=== PATIENT | male | born 1950 | race Caucasian/White ===

== ENCOUNTER 2017-10-17 06:03 | Inpatient (IN) ==
[2017-10-17] MEDS ORDERED: CeFAZolin Syr 2,000MG/20 ML 2,000 MG/20 ML SYRINGE IVPB ONE (06:28)
[2017-10-17] MEDS ORDERED: Albuterol 2.5 MG/3 ML NEBULIZER IH ONE (06:55)
[2017-10-17] MEDS ORDERED: Albuterol 2.5 MG/3 ML NEBULIZER ONE (06:56)
--- NOTE | 2017-10-17 07:04 | Anesthesia Evaluation PreOp ---
Date of Encounter: 10/17/17 Time of Encounter: 07:02 - Past History Planned Operation: Left CEA Cardiac History: MS, HTN, Hyperlipidemia, Cardiac Surgery (CABG x 2 in 08/07/2017 , last dose of plavix at 0400) Pulmonary History: Former smoker (quit 08/02/2017, smoked for 40 years) VEGETABLE [employer] History: Denies Any Significant HX Other Medical History: GERD Anesthesia History: No Prior Anesthetic Complications, Past Anesthesia Alcohol Use: none Drug use: none Medications and Allergies Atorvastatin Calcium [Lipitor] 20 mg PO DAILY #30 tablet 08/22/17 [Rx] Clopidogrel [Plavix] 75 mg PO DAILY 30 Days #30 tablet 08/22/17 [Rx] Metoprolol [Lopressor] 25 mg PO BID #60 tablet 08/22/17 [Rx] Omeprazole [PriLOSEC] 20 mg PO BIDAC #60 capsule. 08/22/17 [Rx] Aspirin [Lo-Dose Aspirin EC] 81 mg PO DAILY 10/06/17 [History] 3 Allergy/AdvReac Type Severity Reaction Status Date / Time No Known Allergies Allergy Verified 08/17/17 17:12 - Meds/Allergy Pre-op Review Medications Reviewed: Yes Allergies Reviewed: Yes Beta Blockers on Current Med List: Yes If Beta Blockers taken, Date/Time (Last Dose taken): 10/17/2017 at 0400 Anesthesia Results - Labs Laboratory Tests 09/25/17 09/25/17 09/25/17 12:34 12:34 12:34 WBC 8.7 Hgb 13.7 Hct 40.4 Plt Count 252 PT 11.8 INR 1.0 APTT 33.1 Sodium 140 Potassium 3.3 L BUN 9 Creatinine 1.10 - Imaging EKG: report reviewed (09/25/2017 SINUS RHYTHM LEFT ATRIAL ENLARGEMENT [-0.15mV P WAVE IN V1/V2] RIGHT BUNDLE BRANCH BLOCK [120+ ms QRS DURATION, UPRIGHT V1, 40+ ms S IN I/aVL/V4/V5/V6] POSSIBLE OLD INFERIOR MS) Anesthesia Exam O2 Sat Height 1.73 m Height 1.73 m Height 1.73 m Weight 64.864 kg Weight 64.864 kg Weight 64.864 kg O2 Sat by Pulse Oximetry 97 Vital Signs Temp Pulse Resp BP Pulse Ox 97.9 F 73 18 141/78 97 10/17/17 06:24 10/17/17 06:24 10/17/17 06:24 10/17/17 06:24 10/17/17 06:24 Height: 5'8'' Weight: 143 lbs NPO (# of Hours): 8 Pain Scale: 0 Pain Scale Used: Numeric (1 - 10) - HEENT Pupil (Motor): EOMI Mallampati: II Teeth: Edentulous Oral Opening: Greater than 3 - VEGETABLE [employer] LOC: Oriented VEGETABLE [employer] F[employer] Motor: Normal RUE, Normal LUE, Normal RLE, Normal LLE, Normal Face [employer] Sensory: Normal: RUE, LUE, RLE, LLE, Face - Cardiac Rhythm: Regular Murmur: None - Pulmonary Breath Sounds: bilateral Clear Respiratory Effort: Symmetrical Anesthesia Assess/Plan ASA Score: 3 Modified [place] Scale for Level of Consciousness: Cooperative, oriented, and tranquil Anesthetic Plan: General Monitoring Plan: Standard Monitors, A-Line Recovery Plan: PACU
[2017-10-17] MEDS ORDERED: LIDOCAINE 1% PF 2 ML AMPUL ONE (07:17)
[2017-10-17] MEDS ORDERED: Lidocaine 1% 20 ML MDV ONE (07:19)
[2017-10-17] MEDS ORDERED: Heparin 1,000 UNITS/500 mL 1,500 ML ONE (07:19)
[2017-10-17] MEDS: Ringers Solution, Lactated 1,000 ML IVC SCH ×2 (07:32→13:30)
--- NOTE | 2017-10-17 07:40 | History & Physical Report ---
Date of Encounter: 10/17/17 Time of Encounter: 07:30 24 Hour HP Update - Instructions Instructions: If the History and Physical is less than 30 days old and was completed prior to A.M. admission and or procedure and has NOT been updated on calendar day of procedure please complete this update prior to performing procedure. - Update Patient reports changes in Medical Condition: No Changes in examination, assessment, or condition: No Changes in Medication: No Preop tests/diagnostics Reviewed: Yes Surgery Remains Indicated: Yes Consent for Planned Operative Procedure(s) Verified: Yes - Pre-Operative Checklist Preoperative Checklist Indicated: Yes Prophylactic Antibiotic Ordered: Yes Home Medications Include Beta Capo: Yes Beta Capo Taken Today (Day of Surgery): Yes Beta Capo Taken Yesterday (Day Prior to Surgery): Yes Is VTE Prophylaxis Indicated?: Yes
[2017-10-17] MEDS ORDERED: ceFAZolin 1,000 MG, Sodium Chloride IRRigation 1,000 ML IR ONE (07:45)
[2017-10-17] MEDS ORDERED: *HR* Labetalol 100 MG/20 ML MDV ONE (08:05)
[2017-10-17] MEDS ORDERED: *HR* OxyCODONE Immed Rel 5 MG TABLET PO PRN (08:41)
[2017-10-17] MEDS ORDERED: *HR* HYDROmorphone 2 MG TABLET PO PRN (08:41)
[2017-10-17] MEDS ORDERED: *HR* Labetalol 100 MG/20 ML MDV IVP PRN (08:41)
[2017-10-17] MEDS ORDERED: *HR* Remifentanil 1 MG VIAL IVP ONE ×2 (10:56)
[2017-10-17] MEDS ORDERED: *HR* Heparin 5,000 UNIT/ML VIAL ONE (10:56)
[2017-10-17] MEDS ORDERED: *HR* Midazolam HCl 2 MG/2 ML VIAL ONE (10:56)
[2017-10-17] MEDS ORDERED: Lidocaine -MPF 2% 2 ML VIAL ONE (10:56)
[2017-10-17] MEDS ORDERED: *HR* FentaNYL (PF) 100 MCG/2 ML VIAL ONE (10:56)
[2017-10-17] MEDS ORDERED: *HR* Succinylcholine 200 MG/10 ML VIAL IVP ONE (10:56)
[2017-10-17] MEDS ORDERED: Dexamethasone 4 MG/ML VIAL ONE ×2 (10:56→13:20)
[2017-10-17] MEDS ORDERED: *HR* Phenylephrine 10 MG/ML VIAL ONE (10:56)
[2017-10-17] MEDS ORDERED: Lidocaine -MPF 4% 5 ML AMPUL ONE (10:56)
[2017-10-17] MEDS ORDERED: *HR* Propofol 200 MG/20 ML VIAL IVP ONE (10:56)
[2017-10-17] MEDS ORDERED: Heparin 1,000 UNITS/500 mL 0 ML ONE (10:56)
[2017-10-17] MEDS ORDERED: Ondansetron 4 MG/2 ML VIAL ONE (10:57)
[2017-10-17] MEDS ORDERED: Protamine Sulfate 50 MG/5 ML VIAL IVP ONE (11:07)
--- NOTE | 2017-10-17 12:16 | Operative Note ---
Date of procedure: 10/17/17 Pre-op diagnosis: left carotid stenosis Post-op diagnosis: same Procedure: left carotid endarterectomy with 8 Fr shunt and bovine patch angioplasty Complications: none Anesthesia: GETA Surgeon: Sean Gaspar Was there an medical laboratory assistant present: No Estimated blood loss (cc): 150 Specimen: none Condition: stable Disposition: PACU Procedure in Detail: History Mr. Javier Blanco is a 66-year-old white male who had had a coronary event requiring intervention and bypass in July of this year in [place]. He was receiving rehabilitation at [facility] where a carotid artery bruit was identified and an abnormal carotid artery duplex scan was obtained. This led to a carotid artery angiogram which showed a high grade lesion of the left internal carotid artery. In addition it demonstrated a high-grade lesion of the orifice of the right subclavian artery with very diminished flow in the right vertebral artery. The patient now comes to the operating room for the left carotid endarterectomy. Procedure After informed consent was obtained the patient was taken to the operating room. An arterial line was placed. General endotracheal anesthesia was established. The left neck was sterilely prepped and draped area a timeout protocol was observed. An oblique incision was then made on the left neck paralleling the anterior border of the sternocleidomastoid muscle. Dissection was carried down to the carotid sheath. The patient demonstrated multiple filmy layers around the contents of the carotid sheath leading to a prolonged dissection. In addition the patient had abnormal takeoff of the superior thyroid artery which needed to be divided in order to appropriately expose the carotid artery bifurcation. After appropriate control was obtained of the carotid vessels 5000 units of heparin were administered intravenously. Observing a three-minute delay the vessels were then clamped with the internal carotid artery clamped first. An 11 blade knife and Dodson scissors were used to open the vessel. An 8 Togol[place] shunt was then inserted atraumatically. Patency of the shunt was confirmed by the use of intraoperative Doppler. Examination of the plaque revealed a very dense and bulky plaque at the orifice of the internal carotid artery. There were no findings of intra-mural or intraluminal hemorrhage or thrombus. The endarterectomy was then begun at the distal aspect of the common carotid artery. Dissection was carried circumferentially proximally and distally. The orifice of the external carotid artery was endarterectomized. The endpoint on the internal carotid artery was smooth. No tacking sutures were necessary. The proximal plaque was also smooth and no tacking sutures were necessary here as well. The bed of the vessel was then inspected for any residual debris. A copious amount of heparinized saline was used to flush this area. A bovine pericardial patch angioplasty was then performed. This was sewn into position using 2 6-0 Prolene sutures. Leaving a small space open on the suture line the shunt was clamped and divided and removed. The final few sutures were then placed. After appropriate backbleeding and flushing the arteries were opened. The flow was first allowed to go into the external carotid artery and then finally into the internal carotid artery. The patient had significant oozing from the needle puncture sites in the surrounding soft tissue. A total of 2 10 mg doses of protamine were given in order to reverse the heparin effect to augment hemostasis. Multiple applications of topical hemostatic agents were used as well. This required a prolonged treatment time. Once hemostasis was achieved the wound was copiously irrigated with antibiotic containing solution. The wound was then closed in layers after half percent Marcaine superficial cervical block was performed. Dry sterile dressing was applied. No drains were placed. The patient was extubated in the operating room. He was found to be neurologically intact. He was then transported from the operating room to the recovery room in stable condition.
--- NOTE | 2017-10-17 12:51 | Anesthesia Evaluation Post Op ---
Date of Encounter: 10/17/17 Time of Encounter: 12:47 - Vital Signs Vital Signs: Vital Signs/O2 Sat, Most Current Temp Pulse Resp BP Pulse Ox 97.4 F L 83 16 99/45 98 10/17/17 12:18 10/17/17 12:38 10/17/17 12:38 10/17/17 12:38 10/17/17 12:38 - Lungs Lungs: Clear Ascult./Percussion - Airway Airway: Non-obstructed - Cardiovascular Regular Rate - Mental Status Mental Status: Alert & Oriented, Answers Appropriately - Pain Pain Scale: 2 Pain Scale used: Numeric (1 - 10) - Nausea Vomiting Nausea Vomiting: Not Present - Hydration Hydration: Ice chips, Has not voided - Discharge PostOp Status: Transfer Patient to floor
[2017-10-17] MEDS ORDERED: *HR* PHENYLEPHRINE 1,000 MCG/10 ML SYRINGE IVP ONE (12:58)
[2017-10-17] MEDS ORDERED: Dexamethasone 4 MG/ML VIAL IVP ONE (13:20)
--- NOTE | 2017-10-17 14:12 | Anesthesia Evaluation Post Op ---
Date of Encounter: 10/17/17 Time of Encounter: 14:10 - Vital Signs Vital Signs: Vital Signs/O2 Sat/Glucose, Most Recent Temp Pulse Resp BP Pulse Ox 97.2 F L 86 16 103/44 99 10/17/17 13:48 10/17/17 13:58 10/17/17 13:58 10/17/17 13:58 10/17/17 13:58 - Lungs Lungs: Clear Ascult./Percussion - Airway Airway: Non-obstructed - Cardiovascular Regular Rate - Mental Status Mental Status: Alert & Oriented, Answers Appropriately - Pain Pain Scale: 0 Pain Scale used: Numeric (1 - 10) - Nausea Vomiting Nausea Vomiting: Not Present - Hydration Hydration: Ice chips, Has not voided Notes: 10/17/17 14:11 ZENA x4. Neuro exam intact. VSS. Denies having any pain or N/V. Has fully recovered from anesthesia. - Discharge PostOp Status: Transfer Patient to floor
[2017-10-17] MEDS ORDERED: Ondansetron 4 MG/2 ML VIAL IVP PRN (14:17)
[2017-10-17] MEDS ORDERED: *HR* HYDROcodone/Acet 5/325 mg TABLET PO PRN (14:17)
[2017-10-17] MEDS ORDERED: Naloxone 0.4 MG/ML INJ IVP PRN (14:17)
[2017-10-17] MEDS ORDERED: Acetaminophen 325 MG TABLET PO PRN (14:17)
[2017-10-18 05:56] LABS: Hematocrit 25.7 % (37.5-50.1); Hemoglobin 8.5 g/dL (12.9-16.9); Immature Granulocytes % 0.4 % (0-4); Lymphocytes # 1.7 K/mcL (0.6-4.6); Lymphocytes % 15.5 %; Mean Corpuscular HGB Conc 33.1 g/dL (31.6-35.5); Mean Corpuscular Hemoglobin 29.8 pg (28.0-33.3); Mean Corpuscular Volume 90.2 fL (83.0-100.0); Mean Platelet Volume 11.4 fL (9.4-12.4); Monocytes # 0.8 K/mcL (0.0-1.3); Monocytes % 7.5 %; Neutrophils # 8.4 K/mcL (1.6-8.9); Platelet Count 228 K/mcL (140-400); Red Blood Count 2.85 M/mcL (4.19-5.50); Red Cell Distribution Width 13.5 % (11.5-14.5); Segmented Neutrophils % 76.6 %
[2017-10-18 06:26] LABS: BUN/Creatinine Ratio 13 (6-26); Blood Urea Nitrogen 11 mg/dL (8-23); Calcium 8.5 mg/dL (8.6-10.3); Carbon Dioxide 25 mEq/L (23-29); Chloride 110 mEq/L (98-107); Glucose 123 mg/dL (70-105); Osmolality,Calculated 293 (280-300); Potassium 3.5 mEq/L (3.5-5.1); Sodium 141 mEq/L (136-145); eGFR For Non-African Americans > 60 (> 60)
[2017-10-18] MEDS ORDERED: Aspirin Enteric Coated 81 MG Tablet PO SCH (09:00)
[2017-10-18 11:08] VITALS: BP 109/66
--- NOTE | 2017-10-18 12:48 | Discharge Summary ---
Orders not resulted at time of discharge: Pending orders 10/16/17 11:30 Red Blood Cells [BBK] Routine Date of Encounter: 10/18/17 Time of Encounter: 12:46 - Discharge Diagnosis (1) Carotid artery disease Priority: Primary Status: Acute Comments: The patient was found to have a carotid artery bruit. This led to duplex scan. The patient was then referred to vascular surgery. An antrum was obtained which showed high-grade left internal carotid artery stenosis of approximately 90% or greater. The patient was then scheduled for surgery for left carotid endarterectomy. Qualifiers: Carotid artery disease type: stenosis Laterality: bilateral Qualified Code(s): I65.23 - Occlusion and stenosis of bilateral carotid arteries (2) S/P CABG x 2 Priority: Secondary Status: Chronic Comments: Patient had done chest pain July which led to cardiology evaluation and workup. The patient had open heart bypass grafting at [facility]. (3) HTN (hypertension) Priority: Secondary Status: Chronic Comments: Patient has a history of chronic hypertension Qualifiers: Hypertension type: essential hypertension - Hospital Course Hospital course: Mr. Blanco is a 66 year old male Who was found to have an asymptomatic carotid bruit. On angiography had a high- grade left carotid artery stenosis. Patient was admitted for surgery for this lesion. He had an uneventful left carotid endarterectomy performed under general endotracheal anesthesia. There were no periprocedural complications are neurologic issues. Patient was doing well postoperatively. He was felt fit for discharge on postoperative day #1. Instructions were given with diet and medication and wound care issues addressed prior to discharge. - Time Spent with Patient Total time spent providing and/or coordinating discharge services: - Discharge Medications Home Medications: Atorvastatin Calcium [Lipitor] 20 mg PO DAILY #30 tablet 08/22/17 [Rx] Clopidogrel [Plavix] 75 mg PO DAILY 30 Days #30 tablet 08/22/17 [Rx] Metoprolol [Lopressor] 25 mg PO BID #60 tablet 08/22/17 [Rx] Omeprazole [PriLOSEC] 20 mg PO BIDAC #60 capsule. 08/22/17 [Rx] Aspirin [Lo-Dose Aspirin EC] 81 mg PO DAILY 10/06/17 [History] Allergies/Adverse Reactions: 3 Allergy/AdvReac Type Severity Reaction Status Date / Time No Known Allergies Allergy Verified 08/17/17 17:12 Date of admission: 10/17/17 14:34 Primary care physician: Kanwal Tenorio CNP Consults: None Procedure(s) Performed: Left carotid endarterectomy with patch angioplasty Discharging clinician: Sean Gaspar Anticipated date of discharge: 10/18/17 Exam Vital Signs, Last 4 Hours Temp Pulse Resp BP Pulse Ox 10/18/17 11:06 98.6 F 85 16 109/66 98 General: Present: Conversant, No Apparent Distress HEENT: Present: Atraumatic, Normocephaly, Trachea midline Neck: Absent: JVD Cardiac: Present: Reg Rate and Rhythm Lungs: Present: Normal Breath Sounds Neuro: Present: Alert and responsive, No focal deficits noted, Cranial nerves grossly intact, Sensory nerves grossly intact Vascular: Present: Surgical incisions (Left neck incision is clean and dry.) Skin: Present: No rashes noted on visualized skin - Patient Status Disposition: Home, Self-Care Condition: Good Functional capacity at discharge: independent ambulation Overall status at discharge: patient is progressing back to baseline - Discharge Instructions Instructions: Carotid Endarterectomy (DC) Follow Up With: Kanwal Tenorio CNP [Primary Care Provider] - 10/24/17 10:20 am Sean Gaspar MD [Partnered Physician] - 10/30/17 9:45 am Additional Instructions: Keep left neck incision dry for total of 5 days following surgery Use ice pack on left neck for the next 2 days at home Continue with usual home medications No automobile driving, no lifting greater than 10 pounds, and no manual labor for 2 weeks. - Diet and Activity Activity: increase activity as tolerated Diet: low fat, low cholesterol - VTE Documentation of Mechanical Device: Graduated compression elastic hosiery
== END 2017-10-18 13:20 | disposition home or self-care (01) | DRG 39 ==
LOC: SAMDAY 06:03 → 2NNU 14:34
PROVIDERS: ADMIT Surgery Vascular Surgery; ATTEND Surgery Vascular Surgery

== ENCOUNTER 2021-05-07 07:51 | Inpatient (IN) ==
[2021-05-07] MEDS ORDERED: Ondansetron ODT 4 MG TAB.RAPDIS SL PRN (10:00)
[2021-05-07] MEDS ORDERED: Melatonin 3 MG TABLET PO PRN (10:00)
[2021-05-07] MEDS ORDERED: Mag Hydrox/Al Hydrox/Simeth 30 ML UDC PO PRN (10:00)
[2021-05-07] MEDS ORDERED: Acetaminophen 325 MG TABLET PO PRN (10:00)
[2021-05-07] MEDS ORDERED: Naloxone 0.4 MG/ML INJ IVP PRN (10:00)
[2021-05-07] MEDS ORDERED: *HR* Heparin 5,000 UNIT/ML VIAL IVP PRN ×2 (10:04)
[2021-05-07] MEDS ORDERED: Aspirin 325 MG TABLET PO ONE (10:05)
[2021-05-07] MEDS ORDERED: Ipratropium/Albuterol Neb 3 ML IH PRN (10:36)
[2021-05-07 10:42] LABS: Hematocrit 31.7 % (37.5-50.1); Hemoglobin 11.4 g/dL (12.9-16.9); Mean Corpuscular Hemoglobin 32.6 pg (28.0-33.3); Mean Corpuscular Volume 90.6 fL (83.0-100.0); Mean Platelet Volume 11.2 fL (9.4-12.4); Platelet Count 274 K/mcL (140-400); Red Cell Distribution Width 13.3 % (11.5-14.5); White Blood Count 9.4 K/mcL (4.3-11.1)
[2021-05-07] MEDS ORDERED: Perflutren Lipid Microsphere 1.3 ML in 0.9 % Sodium Chloride 8.7 ML IVP PRN (10:43)
[2021-05-07 11:00] LABS: Magnesium 1.5 mg/dL (1.6-2.6); Phosphorous 2.7 mg/dL (2.7-4.5)
[2021-05-07 11:01] LABS: BUN/Creatinine Ratio 15 (6-26); Blood Urea Nitrogen 12 mg/dL (8-23); Calcium 9.1 mg/dL (8.6-10.3); Carbon Dioxide 22 mEq/L (23-29); Chloride 106 mEq/L (98-107); Glucose 100 mg/dL (70-105); Osmolality,Calculated 284 (280-300); Potassium 3.3 mEq/L (3.5-5.1); Sodium 137 mEq/L (136-145); eGFR For African Americans > 60 (> 60); eGFR For Non-African Americans > 60 (> 60)
[2021-05-07] MEDS: Benzonatate 100 MG CAPSULE PO SCH ×3 (11:45→20:17)
[2021-05-07] MEDS: Pantoprazole 40 MG VIAL IVP SCH (11:45)
[2021-05-07 12:22] LABS: INR 1.3; Prothrombin Time 14.6 Seconds (9.4-12.1)
[2021-05-07 12:26] LABS: Heparin anti-factor XA UFH 1.19 IU/mL (0.30-0.70)
[2021-05-07] MEDS: Heparin 25,000UNIT/250ML 1/2NS 25,000 UNIT/250 ML IV.SOLN IVC SCH (14:14)
[2021-05-08 02:30] LABS: Basophils % 0.3 %; Eosinophils # 0.2 K/mcL (0.0-0.6); Eosinophils % 2.4 %; Hematocrit 31.3 % (37.5-50.1); Hemoglobin 10.7 g/dL (12.9-16.9); Immature Granulocytes % 0.4 % (0-4); Lymphocytes # 2.3 K/mcL (0.6-4.6); Lymphocytes % 25.8 %; Mean Corpuscular HGB Conc 34.2 g/dL (31.6-35.5); Mean Corpuscular Hemoglobin 31.4 pg (28.0-33.3); Mean Corpuscular Volume 91.8 fL (83.0-100.0); Mean Platelet Volume 11.5 fL (9.4-12.4); Monocytes # 0.6 K/mcL (0.0-1.3); Monocytes % 6.7 %; Neutrophils # 5.8 K/mcL (1.6-8.9); Platelet Count 277 K/mcL (140-400); Red Blood Count 3.41 M/mcL (4.19-5.50); Red Cell Distribution Width 13.3 % (11.5-14.5); Segmented Neutrophils % 64.4 %
[2021-05-08 02:41] LABS: BUN/Creatinine Ratio 17 (6-26); Blood Urea Nitrogen 15 mg/dL (8-23); Calcium 8.8 mg/dL (8.6-10.3); Carbon Dioxide 23 mEq/L (23-29); Chloride 106 mEq/L (98-107); Glucose 111 mg/dL (70-105); Osmolality,Calculated 286 (280-300); Potassium 3.3 mEq/L (3.5-5.1); Sodium 137 mEq/L (136-145); eGFR For African Americans > 60 (> 60); eGFR For Non-African Americans > 60 (> 60)
[2021-05-08] MEDS: Benzonatate 100 MG CAPSULE PO SCH ×3 (09:22→20:18)
[2021-05-08] MEDS: Pantoprazole 40 MG VIAL IVP SCH (09:23)
[2021-05-08] MEDS: Aspirin Enteric Coated 81 MG Tablet PO SCH (12:59)
[2021-05-08] MEDS ORDERED: Heparin 25,000UNIT/250ML 1/2NS 25,000 UNIT/250 ML IV.SOLN IVC SCH (14:00)
[2021-05-08] MEDS: Heparin 25,000UNIT/250ML 1/2NS 25,000 UNIT/250 ML IV.SOLN IVC SCH (16:48)
[2021-05-09 06:05] LABS: Basophils % 0.2 %; Eosinophils # 0.2 K/mcL (0.0-0.6); Hematocrit 33.6 % (37.5-50.1); Hemoglobin 11.5 g/dL (12.9-16.9); Immature Granulocytes % 0.4 % (0-4); Lymphocytes # 2.9 K/mcL (0.6-4.6); Lymphocytes % 28.4 %; Mean Corpuscular HGB Conc 34.2 g/dL (31.6-35.5); Mean Corpuscular Hemoglobin 31.3 pg (28.0-33.3); Mean Corpuscular Volume 91.6 fL (83.0-100.0); Mean Platelet Volume 11.6 fL (9.4-12.4); Monocytes # 0.7 K/mcL (0.0-1.3); Monocytes % 7.1 %; Neutrophils # 6.3 K/mcL (1.6-8.9); Platelet Count 302 K/mcL (140-400); Red Blood Count 3.67 M/mcL (4.19-5.50); Segmented Neutrophils % 61.9 %; White Blood Count 10.2 K/mcL (4.3-11.1)
[2021-05-09 06:34] LABS: BUN/Creatinine Ratio 16 (6-26); Blood Urea Nitrogen 13 mg/dL (8-23); Calcium 8.9 mg/dL (8.6-10.3); Carbon Dioxide 22 mEq/L (23-29); Chloride 105 mEq/L (98-107); Glucose 104 mg/dL (70-105); Magnesium 1.9 mg/dL (1.6-2.6); Osmolality,Calculated 280 (280-300); Potassium 4.3 mEq/L (3.5-5.1); Sodium 135 mEq/L (136-145); eGFR For African Americans > 60 (> 60); eGFR For Non-African Americans > 60 (> 60)
[2021-05-09] MEDS: Pantoprazole 40 MG VIAL IVP SCH (09:05)
[2021-05-09] MEDS: Benzonatate 100 MG CAPSULE PO SCH (09:05)
[2021-05-09] MEDS: Aspirin Enteric Coated 81 MG Tablet PO SCH (09:06)
[2021-05-10 02:10] LABS: Basophils % 0.4 %; Eosinophils # 0.2 K/mcL (0.0-0.6); Eosinophils % 2.5 %; Hemoglobin 11.8 g/dL (12.9-16.9); Immature Granulocytes % 0.2 % (0-4); Lymphocytes # 2.7 K/mcL (0.6-4.6); Mean Corpuscular HGB Conc 34.7 g/dL (31.6-35.5); Mean Corpuscular Hemoglobin 31.7 pg (28.0-33.3); Mean Corpuscular Volume 91.4 fL (83.0-100.0); Mean Platelet Volume 11.4 fL (9.4-12.4); Monocytes # 0.6 K/mcL (0.0-1.3); Monocytes % 7.3 %; Neutrophils # 4.9 K/mcL (1.6-8.9); Platelet Count 300 K/mcL (140-400); Red Blood Count 3.72 M/mcL (4.19-5.50); Red Cell Distribution Width 13.1 % (11.5-14.5); Segmented Neutrophils % 57.6 %; White Blood Count 8.5 K/mcL (4.3-11.1)
[2021-05-10 02:31] LABS: BUN/Creatinine Ratio 19 (6-26); Blood Urea Nitrogen 16 mg/dL (8-23); Carbon Dioxide 22 mEq/L (23-29); Chloride 104 mEq/L (98-107); Glucose 102 mg/dL (70-105); Magnesium 1.7 mg/dL (1.6-2.6); Osmolality,Calculated 281 (280-300); Potassium 3.9 mEq/L (3.5-5.1); Sodium 135 mEq/L (136-145); eGFR For African Americans > 60 (> 60); eGFR For Non-African Americans > 60 (> 60)
[2021-05-10] MEDS: Aspirin Enteric Coated 81 MG Tablet PO SCH (08:20)
[2021-05-10] MEDS: *HR* Enoxaparin 40 MG/0.4 ML SYRINGE SQ SCH (08:21)
[2021-05-10] MEDS: Pantoprazole 40 MG VIAL IVP SCH (08:21)
[2021-05-11 01:47] LABS: Basophils % 0.4 %; Eosinophils # 0.2 K/mcL (0.0-0.6); Eosinophils % 2.7 %; Hematocrit 37.8 % (37.5-50.1); Hemoglobin 12.6 g/dL (12.9-16.9); Immature Granulocytes % 0.7 % (0-4); Lymphocytes # 2.6 K/mcL (0.6-4.6); Lymphocytes % 34.6 %; Mean Corpuscular HGB Conc 33.3 g/dL (31.6-35.5); Mean Corpuscular Hemoglobin 30.6 pg (28.0-33.3); Mean Corpuscular Volume 91.7 fL (83.0-100.0); Mean Platelet Volume 11.4 fL (9.4-12.4); Monocytes # 0.6 K/mcL (0.0-1.3); Monocytes % 8.6 %; Platelet Count 370 K/mcL (140-400); Red Blood Count 4.12 M/mcL (4.19-5.50); Red Cell Distribution Width 12.9 % (11.5-14.5); White Blood Count 7.5 K/mcL (4.3-11.1)
[2021-05-11 01:59] LABS: BUN/Creatinine Ratio 18 (6-26); Blood Urea Nitrogen 18 mg/dL (8-23); Calcium 9.2 mg/dL (8.6-10.3); Carbon Dioxide 24 mEq/L (23-29); Chloride 103 mEq/L (98-107); Glucose 95 mg/dL (70-105); Magnesium 1.7 mg/dL (1.6-2.6); Osmolality,Calculated 284 (280-300); Potassium 3.9 mEq/L (3.5-5.1); Sodium 136 mEq/L (136-145); eGFR For African Americans > 60 (> 60); eGFR For Non-African Americans > 60 (> 60)
[2021-05-11] MEDS: *HR* Enoxaparin 40 MG/0.4 ML SYRINGE SQ SCH (06:02)
[2021-05-11] MEDS: Pantoprazole 40 MG VIAL IVP SCH (08:13)
[2021-05-11] MEDS: Aspirin Enteric Coated 81 MG Tablet PO SCH (08:14)
[2021-05-12 02:55] LABS: Basophils # 0.1 K/mcL (0.0-0.2); Basophils % 0.5 %; Eosinophils # 0.2 K/mcL (0.0-0.6); Eosinophils % 2.3 %; Hematocrit 38.3 % (37.5-50.1); Hemoglobin 13.3 g/dL (12.9-16.9); Immature Granulocytes % 0.4 % (0-4); Lymphocytes # 3.5 K/mcL (0.6-4.6); Lymphocytes % 37.3 %; Mean Corpuscular HGB Conc 34.7 g/dL (31.6-35.5); Mean Corpuscular Hemoglobin 31.8 pg (28.0-33.3); Mean Corpuscular Volume 91.6 fL (83.0-100.0); Mean Platelet Volume 11.1 fL (9.4-12.4); Monocytes # 0.7 K/mcL (0.0-1.3); Monocytes % 7.8 %; Neutrophils # 4.8 K/mcL (1.6-8.9); Platelet Count 397 K/mcL (140-400); Red Blood Count 4.18 M/mcL (4.19-5.50); Red Cell Distribution Width 12.8 % (11.5-14.5); Segmented Neutrophils % 51.7 %; White Blood Count 9.3 K/mcL (4.3-11.1)
[2021-05-12 03:13] LABS: BUN/Creatinine Ratio 21 (6-26); Blood Urea Nitrogen 20 mg/dL (8-23); Calcium 9.5 mg/dL (8.6-10.3); Carbon Dioxide 22 mEq/L (23-29); Chloride 104 mEq/L (98-107); Glucose 98 mg/dL (70-105); Magnesium 1.7 mg/dL (1.6-2.6); Osmolality,Calculated 289 (280-300); Sodium 138 mEq/L (136-145); eGFR For African Americans > 60 (> 60); eGFR For Non-African Americans > 60 (> 60)
[2021-05-12] MEDS: *HR* Enoxaparin 40 MG/0.4 ML SYRINGE SQ SCH (05:58)
[2021-05-12 06:50] VITALS: O2SAT 97
[2021-05-12] MEDS: Aspirin Enteric Coated 81 MG Tablet PO SCH (08:37)
[2021-05-12] MEDS: Pantoprazole 40 MG VIAL IVP SCH (08:37)
[2021-05-12 09:22] LABS: Adenovirus Not Detected (Not Detect); Coronavirus 229E Not Detected (Not Detect); Coronavirus HKU1 Not Detected (Not Detect); Coronavirus NL63 Not Detected (Not Detect); Coronavirus OC43 Not Detected (Not Detect); Human Metapneumovirus Not Detected (Not Detect); Human Rhinovirus/Enterovirus Not Detected (Not Detect); Influenza A Subtype 2009 H1 Not Detected (Not Detect); SARS-CoV-2 Not Detected (Not Detect)
[2021-05-12 09:23] LABS: Bordetella Pertussis Not Detected (Not Detect); Chlamydophila pneumoniae Not Detected (Not Detect); Influenza B Not Detected (Not Detect); Mycoplasma pneumoniae Not Detected (Not Detect); Parainfluenza Virus 1 Not Detected (Not Detect); Parainfluenza Virus 2 Not Detected (Not Detect); Parainfluenza Virus 3 Not Detected (Not Detect); Parainfluenza Virus 4 Not Detected (Not Detect); Respiratory Syncytial Virus Not Detected (Not Detect)
[2021-05-12 11:08] VITALS: BP 126/77; PULSE 69; TEMP 98.6
== END 2021-05-12 16:09 | DRG 871 ==
LOC: 2ANU → SUATTDRO 09:32
PROVIDERS: ADMIT Student in an Organized Health Care Education/Training Program; ATTEND Internal Medicine